=== PATIENT | male | born 1965 | race Caucasian/White ===

== ENCOUNTER 2022-10-17 05:48 | Day surgery (SDC) | payer MEDICARE, MEDICAID ==
[2022-10-13 11:07] LABS: BASOPHILS # (AUTO) 0.1 X10'3 (0-0.2); BASOPHILS % (AUTO) 0.5 % (0-1); EOSINOPHILS # (AUTO) 0.4 X10'3 (0-0.9); EOSINOPHILS % (AUTO) 3.5 % (0-6); LYMPHOCYTES # (AUTO) 2.5 X10'3 (1.1-4.8); LYMPHOCYTES % (AUTO) 25.3 % (21-51); MEAN CORPUSCULAR HEMOGLOBIN 29.1 PG (27.0-31.0); MEAN CORPUSCULAR HGB CONC 33.7 g/dL (33.0-36.5); MEAN CORPUSCULAR VOLUME 86.4 FL (78-98); MEAN PLATELET VOLUME 7.8 FL (7.4-10.4); MONOCYTES # (AUTO) 0.8 X10'3 (0-0.9); MONOCYTES % (AUTO) 7.9 % (2-12); NEUTROPHILS # (AUTO) 6.3 X10'3 (1.8-7.7); NEUTROPHILS % (AUTO) 62.8 % (42-75); PRE OP HEMATOCRIT 41.2 % (42.0-52.0); PRE OP HEMOGLOBIN 13.9 g/dL (14.0-17.9); PRE OP PLATELET COUNT 278 X10'3 (140-440); RED BLOOD COUNT 4.77 X10'6 (4.70-6.10); RED CELL DISTRIBUTION WIDTH 13.9 % (11.5-14.5)
[2022-10-13 11:25] LABS: ALBUMIN 3.9 G/DL (3.4-5.0); ALBUMIN/GLOBULIN RATIO 1.1 (1.1-1.5); ALKALINE PHOSPHATASE 84 IU/L (46-116); BLOOD UREA NITROGEN 20 MG/DL (7-18); BUN/CREATININE RATIO 17.7 (10.0-20.0); CALCIUM 9.3 MG/DL (8.5-10.1); CHLORIDE 105 MMOL/L (99-107); CREATININE 1.13 MG/DL (0.60-1.10); PRE OP ALT 52 U/L (30-65); PRE OP ANION GAP 8 (8-16); PRE OP AST 26 U/L (10-37); PRE OP BILIRUB, TOTAL 0.4 MG/DL (0.0-1.0); PRE OP GLUCOSE 93 MG/DL (70-104); PRE OP POTASSIUM 4.6 MMOL/L (3.4-5.1); PRE OP SODIUM 139 MMOL/L (135-145); TOTAL CARBON DIOXIDE 26.3 MMOL/L (24-32); TOTAL PROTEIN 7.4 G/DL (6.4-8.2); eGFR 67 ML/MIN
[~2022-10-17] VITALS: Ht 188 cm; Wt 147.3 kg
[~2022-10-17 05:48] MED LIST: ATOR20TA66 PO; CYCL-1 PO; FINA1TAB17 PO; FLO0.4C PO; GABA300C PO; LISI-644 PO; METF-900 PO; ceFAZolin inj. 3,000 MG in normal saline 100ml IV soln 100 ML IV ONE; famotidine 20mg tablet PO ONE; ringers solution, lacted 1,000 ML IV SCH
[2022-10-17 05:55] VITALS: BP 143/81
[2022-10-17] MEDS ORDERED: BUPIVAcaine/PF 2.5 mg/ml (0.25%) 30ml vial ONE (07:02)
[2022-10-17] MEDS ORDERED: morphine 4 MG/ML inj SYRINge IV PRN (07:10)
[2022-10-17] MEDS ORDERED: labetalol 20mg/4ml (5mg/ml) syringe IV PRN (07:10)
[2022-10-17] MEDS ORDERED: morphine 2 MG/ML inj. syringe IV PRN (07:10)
[2022-10-17] MEDS ORDERED: ondansetron/PF 4mg/2ml inj IV PRN (07:10)
[2022-10-17] MEDS ORDERED: ringers solution, lacted 1,000 ML IV SCH (07:10)
[2022-10-17] MEDS ORDERED: fentaNYL/PF 50MCG/1 ML 2ML syringe ONE (08:01)
[2022-10-17] MEDS ORDERED: MIDAZolam 1 MG/ML 5ML VIAL ONE (08:02)
[2022-10-17] MEDS ORDERED: LIDOcaine 0.5% (5mg/ml) 50ml vial ONE (08:07)
[2022-10-17 08:41] VITALS: BP 122/81
--- NOTE | 2022-10-17 08:41 | NUR ---
Received from OR via [facility] IN STABLE CONDITION , accompanied by Anesthesiologist and SENIOR CORPORATE RECRUITER report given by SENIOR CORPORATE RECRUITER AND Anesthesiolgist. Addendum: 10/17/22 at 0850 by Eve Avery RN Amended: Links added.
[2022-10-17 08:50] VITALS: BP 145/81
[2022-10-17 09:00] VITALS: BP 149/78
--- NOTE | 2022-10-17 09:11 | NUR ---
ALL DISCHARGE CRITERIA HAS BEEN MET. VSS, PAIN AT A TOLERABLE LEVEL, VOIDING AND ABLE TO SAFELY AMBULATE AND TRANSFER SELF. IV TAKEN OUT WITHOUT ANY COMPLICATIONS. ALL DISCHARGE INSTRUCTIONS COVERED WITH PATIENT AND ALL QUESTIONS ANSWERED. PATIENT TAKEN OUT VIA WHEELCHAIR TO PERSONAL VEHICLE WHERE FAMILY/FRIEND DROVE PATIENT HOME. Addendum: 10/17/22 at 0928 by Eve Avery RN Amended: Links added.
== END 2022-10-17 09:11 | disposition home or self-care (01) ==
LOC: PAS 05:48
PROVIDERS: ATTEND Orthopaedic Surgery Hand Surgery
DX: M19.032 Primary osteoarthritis, left wrist (principal); M17.12 Unilateral primary osteoarthritis, left knee; G47.33 Obstructive sleep apnea (adult) (pediatric); I10 Essential (primary) hypertension; K21.9 Gastro-esophageal reflux disease without esophagitis; N40.0 Benign prostatic hyperplasia without lower urinary tract symptoms; E66.01 Morbid (severe) obesity due to excess calories; Z68.41 Body mass index [BMI] 40.0-44.9, adult; G62.9 Polyneuropathy, unspecified; G89.29 Other chronic pain; Z79.899 Other long term (current) drug therapy; Z98.890 Other specified postprocedural states; Z87.891 Personal history of nicotine dependence; Z72.89 Other problems related to lifestyle
CPT/HCPCS: 25230; 36415; 80053; 82948; 85025; J0690; J2250; J3010; J3490; J7030; J7120; Z7506; Z7512; A4618; A6449; A7000

== ENCOUNTER 2022-11-28 12:26 | Emergency (ER) | payer MEDICARE, MEDICAID ==
[~2022-11-28] VITALS: Ht 188 cm; Wt 140.8 kg
[2022-11-28 12:26] VITALS: BP 164/106
[~2022-11-28 12:26] MED LIST changes: -ceFAZolin inj. 3,000 MG in normal saline 100ml IV soln 100 ML IV ONE; -famotidine 20mg tablet PO ONE; -ringers solution, lacted 1,000 ML IV SCH
[2022-11-28] MEDS ORDERED: bacitracin 15gm ointment TP ONE (13:55)
[2022-11-28] MEDS ORDERED: LIDOcaine 1% 30ml preserv. free vial IJ ONE (13:55)
[2022-11-28] MEDS ORDERED: TETanus/Pertussis (Acell)/Diphther VAC/PF (Tdap-Adult) 0.5ml syringe IMVAC ONE (13:55)
[2022-11-28] MEDS ORDERED: cephalexin 500mg capsule PO ONE (15:15)
[2022-11-28] MEDS ORDERED: CEPH-585 PO (15:16)
== END 2022-11-28 15:40 | disposition home or self-care (01) ==
LOC: ER 12:26
DX: S61.210A Laceration without foreign body of right index finger without damage to nail, initial encounter (principal); W45.8XXA Other foreign body or object entering through skin, initial encounter; Y93.89 Activity, other specified; Y92.89 Other specified places as the place of occurrence of the external cause; Y99.8 Other external cause status
CPT/HCPCS: 12002; 73140; 90471; 90715; 99283; A6449

== ENCOUNTER 2023-08-10 07:44 | Inpatient (IN) | payer MEDICARE, MEDICAID ==
[2023-08-04 16:40] LABS: BASOPHILS # (AUTO) 0.1 X10'3 (0-0.2); EOSINOPHILS # (AUTO) 0.6 X10'3 (0-0.9); EOSINOPHILS % (AUTO) 6.6 % (0-6); LYMPHOCYTES # (AUTO) 2.6 X10'3 (1.1-4.8); LYMPHOCYTES % (AUTO) 29.7 % (21-51); MEAN CORPUSCULAR HEMOGLOBIN 29.3 PG (27.0-31.0); MEAN CORPUSCULAR HGB CONC 33.7 g/dL (33.0-36.5); MEAN CORPUSCULAR VOLUME 86.9 FL (78-98); MEAN PLATELET VOLUME 8.1 FL (7.4-10.4); MONOCYTES # (AUTO) 0.7 X10'3 (0-0.9); MONOCYTES % (AUTO) 8.4 % (2-12); NEUTROPHILS # (AUTO) 4.8 X10'3 (1.8-7.7); NEUTROPHILS % (AUTO) 54.3 % (42-75); PRE OP HEMATOCRIT 40.2 % (42.0-52.0); PRE OP HEMOGLOBIN 13.6 g/dL (14.0-17.9); PRE OP PLATELET COUNT 303 X10'3 (140-440); PRE OP WHITE BLOOD COUNT 8.8 10'3 (4.8-10.8); RED BLOOD COUNT 4.63 X10'6 (4.70-6.10); RED CELL DISTRIBUTION WIDTH 13.7 % (11.5-14.5)
[2023-08-04 16:57] LABS: ALBUMIN 3.8 G/DL (3.4-5.0); ALKALINE PHOSPHATASE 98 IU/L (46-116); BLOOD UREA NITROGEN 21 MG/DL (7-18); BUN/CREATININE RATIO 18.1 (10.0-20.0); CHLORIDE 103 MMOL/L (99-107); CREATININE 1.16 MG/DL (0.60-1.10); PRE OP ALT 60 U/L (30-65); PRE OP ANION GAP 10 (8-16); PRE OP BILIRUB, TOTAL 0.4 MG/DL (0.0-1.0); PRE OP GLUCOSE 108 MG/DL (70-104); PRE OP SODIUM 141 MMOL/L (135-145); TOTAL CARBON DIOXIDE 27.9 MMOL/L (24-32); TOTAL PROTEIN 7.6 G/DL (6.4-8.2); eGFR 65 ML/MIN
[2023-08-04 16:59] LABS: PRE OP AST 34 U/L (10-37); PRE OP POTASSIUM 4.3 MMOL/L (3.4-5.1)
[2023-08-10] VITALS (39 sets, daily range): BP systolic 97–142; BP diastolic 55–92; PULSE 55–98; RESP 8–29; TEMP 97.8–98.3; O2SAT 92–99
[~2023-08-10] VITALS: Ht 188 cm; Wt 149.5 kg
[2023-08-10] MEDS: ceFAZolin inj. 3,000 MG in normal saline 100ml IV soln 100 ML IV ONE (05:30)
[2023-08-10] MEDS: tranexamic acid inj. 1,000 MG in normal saline IV soln 100ML IV ONE (05:30)
[2023-08-10] MEDS: MESSAGE TO PHARMACY PO ONE (06:55)
[~2023-08-10 07:44] MED LIST changes: +DEXTROSE 15 GM of carb/4 tabs (each vial/BOTTLE has 4 tablets) PO PRN; +GABA600T13 PO; +HYDR-3972 PO; +acetaminophen 325mg tablet PO PRN; +bisacodyl 10mg suppository rectal RC PRN; +dextrose 50%-water 50ml dispensing syringe IV PRN; +diphenhydrAMINE 25mg capsule PO PRN; +glucagon, human recombinant 1mg kit SUBCUT PRN; +insulin Lispro (HumaLOG) vial - multi-dose SQ SCH; +magnesium hydroxide 30ml (MOM) UD suspension PO PRN; +naloxone 0.4 mg/ml inj IV PRN; +ondansetron/PF 4mg/2ml inj IV PRN
[2023-08-10] MEDS ORDERED: ceFAZolin/D5W- 1GM premix 50 ML IV SCH (08:00)
[2023-08-10] MEDS: famotidine 20mg tablet PO ONE (09:51)
[2023-08-10] MEDS: celeCOXIB 100mg capsule PO ONE (09:51)
[2023-08-10] MEDS: oxyCODONE SR 10mg (sust. release) tab -2 tabs (20mg) PO ONE (09:51)
[2023-08-10] MEDS: acetaminophen 325mg tablet PO ONE (09:52)
[2023-08-10] MEDS: metoclopramide 5 mg/ml inj IV ONE (09:53)
[2023-08-10] MEDS: vancomycin 1,750 MG in NS 350ml IV soln IV ONE (09:53)
[2023-08-10] MEDS: ringers solution, lacted 1,000 ML IV SCH ×2 (09:53→14:20)
[2023-08-10] MEDS: gabapentin 300mg capsule PO ONE (09:54)
[2023-08-10] MEDS ORDERED: enalaprilat dihydrate 2.5mg/2ml vial IV PRN (10:15)
[2023-08-10] MEDS ORDERED: labetalol 20mg/4ml (5mg/ml) syringe IV PRN (10:15)
[2023-08-10] MEDS ORDERED: ondansetron/PF 4mg/2ml inj IV PRN (10:15)
[2023-08-10] MEDS ORDERED: proCHLORperazine 10 MG/2 ml inj IV PRN (10:15)
[2023-08-10] MEDS ORDERED: morphine 4 MG/ML inj SYRINge IV PRN (10:15)
[2023-08-10] MEDS ORDERED: meperidine/PF 25mg/ml syringe IV PRN ×3 (10:15)
[2023-08-10] MEDS ORDERED: BUPIVACAINE/MELOXICAM 14 ML VIAL IL ONE (11:09)
[2023-08-10] MEDS ORDERED: BUPIVAcaine/dex-water/PF 7.5 mg/ml 2ml ampul ONE (11:23)
[2023-08-10] MEDS ORDERED: fentaNYL/PF 50MCG/1 ML 2ML syringe ONE (11:32)
[2023-08-10] MEDS ORDERED: MIDAZolam 1mg/ml 10ml vial ONE (11:32)
[2023-08-10] MEDS: BUPIVACAINE/MELOXICAM 14 ML VIAL IL ONE (12:31)
[2023-08-10] MEDS: vancomycin 1,000mg inj ONE (12:32)
[2023-08-10] MEDS ORDERED: BUPIVAcaine/PF 7.5mg/ml (0.75%) 10ml vial ONE (12:58)
[2023-08-10] MEDS ORDERED: ROPIVAcaine 0.5% (5mg/ml) 30ml vial ONE (12:58)
[2023-08-10] MEDS ORDERED: ROPIVAcaine 0.2% (10 MG/5 ML) BOLUS INJECTION ADDCANAL PRN (13:10)
[2023-08-10] MEDS: ROPIVAcaine 0.2%/PF PUMP/bolus 545 ML ADDCANAL SCH (15:43)
[2023-08-10] MEDS ORDERED: cefazolin 2gm/D5W 100mL 100 ML IV SCH (16:00)
[2023-08-10] MEDS: gabapentin 300mg capsule PO SCH (16:50)
[2023-08-10] MEDS: ceFAZolin inj. 3,000 MG in normal saline 100ml IV soln 100 ML IV SCH (17:00)
[2023-08-10] MEDS: tranexamic acid inj. 1,500 MG in normal saline 100ml IV soln 85 ML IV ONE (17:08)
[2023-08-10] MEDS: potassium cl 20mEq in 1/2 NS 1,000 ML IV SCH (19:00)
[2023-08-10] MEDS: morphine 2 MG/ML inj. syringe IV PRN (19:07)
[2023-08-10] MEDS: HYDROcodone/acetaminophen 10/325mg tab PO PRN (19:24)
[2023-08-10] MEDS: HYDROmorphone 1 mg/ml syringe IV PRN (19:24)
[2023-08-10] MEDS: cyclobenzaprine 10mg tablet PO SCH (22:17)
[2023-08-10] MEDS: ascorbic acid 500mg tablet PO SCH (22:17)
[2023-08-10] MEDS: sennosides 8.6mg tablet PO SCH (22:18)
[2023-08-10] MEDS: finasteride 5mg tablet PO SCH (23:26)
[2023-08-10] MEDS: vancomycin inj 1,750 MG in normal saline 500ml IV soln 350 ML IV ONE (23:27)
[2023-08-10] MEDS: insulin glargine (Lantus) pen - multi-dose SQ SCH (23:31)
[2023-08-11 02:00] VITALS: BP 135/73; PULSE 75; RESP 18; TEMP 98.6; O2SAT 96
[2023-08-11] MEDS: HYDROmorphone inj. 0.5 MG/0.5 ML DISP.SYRIN IV PRN (03:31)
[2023-08-11] MEDS: HYDROcodone/acetaminophen 10/325mg tab PO PRN (05:56)
[2023-08-11 06:00] VITALS: BP 155/86; PULSE 78; RESP 16; TEMP 98.1; O2SAT 99
[2023-08-11 06:33] LABS: HEMOGLOBIN 12.5 g/dl (14.0-17.9); WHITE BLOOD COUNT 14.9 X10'3 (4.5-11.0)
[2023-08-11 06:35] LABS: BASOPHILS % (AUTO) 0.2 % (0-1); EOSINOPHILS % (AUTO) 0.1 % (0-6); HEMATOCRIT 37.7 % (42.0-52.0); LYMPHOCYTES # (AUTO) 1.3 X10'3 (1.1-4.8); LYMPHOCYTES % (AUTO) 8.6 % (21-51); MEAN CORPUSCULAR HEMOGLOBIN 28.9 PG (27.0-31.0); MEAN CORPUSCULAR HGB CONC 33.3 g/dL (33.0-36.5); MEAN CORPUSCULAR VOLUME 86.8 FL (78-98); MEAN PLATELET VOLUME 8.2 FL (7.4-10.4); MONOCYTES % (AUTO) 6.9 % (2-12); NEUTROPHILS # (AUTO) 12.6 X10'3 (1.8-7.7); NEUTROPHILS % (AUTO) 84.2 % (42-75); PLATELET COUNT 312 X10'3 (140-440); RED BLOOD COUNT 4.35 X10'6 (4.70-6.10); RED CELL DISTRIBUTION WIDTH 13.5 % (11.5-14.5)
[2023-08-11] MEDS: tamsulosin 0.4mg capsule PO SCH (09:42)
[2023-08-11] MEDS: multivitamins, therapeutics tablet PO SCH (09:42)
[2023-08-11] MEDS: atorvastatin 20mg tablet PO SCH (09:44)
[2023-08-11] MEDS: aspirin 325mg tablet PO SCH (09:44)
[2023-08-11] MEDS: lisinopril 20mg tablet PO SCH (09:47)
[2023-08-11 10:00] VITALS: BP 151/93; PULSE 77; RESP 18; TEMP 98.7; O2SAT 98
[2023-08-11 10:15] LABS: ANION GAP 12 (8-16); CHLORIDE 106 MMOL/L (99-107); POTASSIUM 4.3 MMOL/L (3.5-5.1); SODIUM 143 MMOL/L (135-145); TOTAL CARBON DIOXIDE 25.2 MMOL/L (24-32)
[2023-08-11 14:45] VITALS: RESP 16
[2023-08-11] MEDS ORDERED: celeCOXIB 100mg capsule PO SCH (20:00)
== END 2023-08-11 15:10 | disposition home or self-care (01) | DRG 470 ==
LOC: PAS 07:44 → ORTHO 4S 20:10
PROVIDERS: ADMIT Orthopaedic Surgery; ATTEND Orthopaedic Surgery
PROC: 3E0T3BZ Introduction of Anesthetic Agent into Peripheral Nerves and Plexi, Percutaneous Approach (ICD-10-PCS; 2023-08-10)
PROC: 0SRD069 Replacement of Left Knee Joint with Oxidized Zirconium on Polyethylene Synthetic Substitute, Cemented, Open Approach (ICD-10-PCS; principal; 2023-08-10 11:23)
DX: M17.12 Unilateral primary osteoarthritis, left knee (principal); E11.9 Type 2 diabetes mellitus without complications; Z79.899 Other long term (current) drug therapy
CPT/HCPCS: 36415; 73560; 80051; 80053; 82948; 83036; 85025; 86885; 86900; 86901; 87081; 97116; 97161; 97530; A4215; A4615; A7000; C1713; C1776; G0378; J0690; J1170; J1815; J2250; J2270; J2765; J2795; J3010; J3370; J3480; J3490; J7040; J7120